=== PATIENT | male | born 1980 | race Caucasian/White ===

== ENCOUNTER 2018-09-15 02:25 | Emergency (ER) | payer OTHER ==
[~2018-09-15] VITALS: Ht 177.8 cm; Wt 74.6 kg
[2018-09-15] MEDS ORDERED: PANTOPRAZOLE 40 MG IV ONE (02:38)
[2018-09-15] MEDS ORDERED: OXYC-306 PO (02:47)
[2018-09-15 02:49] LABS: BASOPHILS # (AUTO) 0.02 x10^3/uL (0-0.1); BASOPHILS % (AUTO) 0 % (0-1); EOSINOPHILS # (AUTO) 0.47 x10^3/uL (0-0.4); EOSINOPHILS % (AUTO) 3 % (1-7); LYMPHOCYTES # (AUTO) 1.03 x10^3/uL (1-3.4); LYMPHOCYTES % (AUTO) 7 % (22-44); MD NO; MEAN CORPUSCULAR HEMOGLOBIN 34.2 pg (27.5-34.5); MEAN CORPUSCULAR HGB CONC 34.3 g/dL (33.2-36.2); MEAN CORPUSCULAR VOLUME 99.6 fL (81-97); MEAN PLATELET VOLUME 8.9 fL (7.4-10.4); MONOCYTES # (AUTO) 0.63 x10^3/uL (0.2-0.8); MONOCYTES % (AUTO) 5 % (2-9); NEUTROPHILS # (AUTO) 11.75 x10^3/uL (1.8-6.8); NEUTROPHILS % (AUTO) 85 % (42-75); PLATELET COUNT 288 x10^3/uL (130-400); RED BLOOD COUNT 4.93 x10^6/uL (4.38-5.82); RED CELL DISTRIBUTION WIDTH 14.3 % (9.4-14.8)
[2018-09-15] MEDS ORDERED: MORPHINE SULFATE 4 MG/ML, 1ML ONE (02:54)
[2018-09-15] MEDS ORDERED: MORPHINE SULFATE 4 MG/ML, 1ML IVPush PRN (03:00)
[2018-09-15] MEDS ORDERED: SODIUM CHLORIDE 0.9% 1,000ML IVBOLUS ONE (03:00)
[2018-09-15] MEDS ORDERED: ONDANSETRON 2MG/ML, 2ML IVPush ONE (03:00)
[2018-09-15] MEDS ORDERED: PANTOPRAZOLE 40 MG IV IVPush ONE (03:00)
[2018-09-15 03:01] LABS: ALANINE AMINOTRANSFERASE 48 U/L (12-78); ALBUMIN 3.8 g/dL (3.4-5.0); ANION GAP 11 mmol/L (5-15); CALCIUM 8.2 mg/dL (8.5-10.1); CHLORIDE 106 mmol/L (98-107); CREATININE 0.96 mg/dL (0.7-1.3)
[2018-09-15 03:03] LABS: ALKALINE PHOSPHATASE 80 U/L (45-117); BILIRUBIN,TOTAL 0.4 mg/dL (0.2-1.0); TOTAL PROTEIN 7.6 g/dL (6.4-8.2)
[2018-09-15 03:58] VITALS: BP 111/74
== END 2018-09-15 04:00 | disposition home or self-care (01) ==
LOC: ED 03:47
DX: K29.20 Alcoholic gastritis without bleeding (principal); F10.120 Alcohol abuse with intoxication, uncomplicated
CPT/HCPCS: 36415; 80053; 80307; 83690; 85025; 96361; 96374; 96375; 99283; C9113; J7030

== ENCOUNTER 2020-04-03 17:51 | Emergency (ER) | payer BC, OTHER ==
[~2020-04-03] VITALS: Ht 175.3 cm; Wt 81.2 kg
[~2020-04-03 17:51] MED LIST: OXYC-306 PO
[2020-04-03 17:57] VITALS: BP 161/95
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
[2020-04-03] MEDS ORDERED: LIDOCAINE-MPF 1%, 5ML ONE (18:53)
[2020-04-03] MEDS ORDERED: LIDOCAINE 1%, 2ML INFIL ONE (19:00)
[2020-04-03] MEDS ORDERED: LIDOCAINE-MPF 1%, 5ML INFIL ONE (19:00)
[2020-04-03] MEDS ORDERED: IBUPROFEN 800 MG TABLET ONE (19:03)
[2020-04-03] MEDS ORDERED: IBUPROFEN 800 MG TABLET PO ONE (19:30)
== END 2020-04-03 20:12 | disposition home or self-care (01) ==
LOC: ED 18:26
DX: S01.511A Laceration without foreign body of lip, initial encounter (principal); G89.11 Acute pain due to trauma; R51 Headache; F17.200 Nicotine dependence, unspecified, uncomplicated; X58.XXXA Exposure to other specified factors, initial encounter; Y93.89 Activity, other specified; Y92.098 Other place in other non-institutional residence as the place of occurrence of the external cause; Y99.8 Other external cause status
CPT/HCPCS: 12051; 99284